=== PATIENT | male | born 1995 | race Caucasian/White ===

== ENCOUNTER 2020-05-06 23:12 | Emergency (ER) | payer SELFPAY ==
[2020-05-06] MEDS ORDERED: ASPIRIN 81 MG CHEW (CHILDREN'S ASA) PO ONE (23:30)
[2020-05-06 23:33] LABS: HEMATOCRIT 46 % (40-54); HEMOGLOBIN 15.8 G/DL (13.3-17.7); LYMPHOCYTES % (AUTO) 39 % (12-44); MEAN CORPUSCULAR HEMOGLOBIN 29 PG (25-34); MEAN CORPUSCULAR HGB CONC 35 G/DL (32-36); MEAN CORPUSCULAR VOLUME 85 FL (80-99); NEUTROPHILS % (AUTO) 49 % (42-75); PLATELET COUNT 207 10^3/uL (130-400)
[2020-05-06 23:34] LABS: BASOPHILS # (AUTO) 0.1 10^3/uL (0.0-0.1); BASOPHILS % (AUTO) 1 % (0-10); EOSINOPHILS # (AUTO) 0.2 10^3/uL (0.0-0.3); EOSINOPHILS % (AUTO) 4 % (0-10); LYMPHOCYTES # (AUTO) 2.4 X 10^3 (1.0-4.0); MONOCYTES # (AUTO) 0.4 X 10^3 (0.0-1.0); MONOCYTES % (AUTO) 7 % (0-12); NEUTROPHILS # (AUTO) 2.9 X 10^3 (1.8-7.8)
--- NOTE | 2020-05-06 23:34 | ED Cardiac General ---
History of Present Illness General Chief Complaint: Chest Pain Stated Complaint: CHEST/BACK PAIN Source: patient History of Present Illness Date Seen by Provider: May 06, 2020 Time Seen by Provider: 23:15 Initial Comments 24 yo male presenting with pain in middle of chest radiating to middle of back between his shoulder blades. He reports this has been present for about an hour and is a throbbing pain. It comes about every "1.5 seconds" for his throbbing pain. He has some nausea with the pain. He states he does not have any worsening of the pain with movement or deep breaths. He has not had pain like this before. 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 He reportedly has elevated triglycerides over 600 but does not take medicine for those. He takes Clonidine for blood pressure and has meds he takes for schizophrenia and to help him sleep. Allergies and Home Medications Allergies Coded Allergies: No Known Drug Allergies (Unverified , 05/06/20) Patient Home Medication List Home Medication List Reviewed: Yes Review of Systems Review of Systems Constitutional: No chills, No dizziness, No fever EENTM: No Symptoms Reported Respiratory: No Symptoms Reported Cardiovascular: See HPI Gastrointestinal: Nausea (with pain in chest) Genitourinary: No Symptoms Reported Musculoskeletal: back pain (middle upper back between shoulder blades) Skin: no symptoms reported Psychiatric/Neurological: Anxiety Past Nyzmelu-Dvvdst-Lkefqy Hx Past Med/Social Hx: Reviewed Nursing Past Med/Soc Hx Patient Social History Alcohol Use: Denies Use Recreational Drug Use: No Smoking Status: Current Everyday Smoker Type Used: Cigarettes Recent Foreign Travel: No Contact w/Someone Who Travel: No Past Medical History Surgeries: No Respiratory: No Cardiac: Yes Heart Attack (16 years old when he had a heart attack), High Cholesterol, Hypertension Neurological: No Genitourinary: No Gastrointestinal: No Musculoskeletal: No Endocrine: No Psychosocial: Yes Schizophrenia Physical Exam Vital Signs Vital Signs - First Documented 05/06/20 23:28 Temp 36.6 Pulse 84 Resp 16 B/P (MAP) 164/91 (115) Pulse Ox 98 O2 Delivery Room Air Capillary Refill : Height, Weight, BMI Height: '" Weight: lbs. oz. kg; BMI Method: General Appearance: No Apparent Distress, WD/WN HEENT: PERRL/EOMI Neck: Non Tender, Supple Respiratory: Chest Non Tender, Lungs Clear, Normal Breath Sounds, No Accessory Muscle Use, No Respiratory Distress Cardiovascular: Regular Rate, Rhythm, No JVD, No Murmur, Normal Peripheral Pulses Gastrointestinal: Normal Bowel Sounds, No Pulsatile Mass, Non Tender, Soft Extremity: Normal Capillary Refill Neurologic/Psychiatric: Alert, Oriented x3, No Motor/Sensory Deficits, bookkeeping manager II- XII Norm as Tested Skin: Normal Color, Warm/Dry Progress/Results/Core Measures Results/Orders Lab Results Laboratory Tests Test 05/06/20 23:25 Range/Units White Blood Count 6.0 4.3-11.0 10^3/uL Red Blood Count 5.41 4.35-5.85 10^6/uL Hemoglobin 15.8 13.3-17.7 G/DL Hematocrit 46 40-54 % Mean Corpuscular Volume 85 80-99 FL Mean Corpuscular Hemoglobin 29 25-34 PG Mean Corpuscular Hemoglobin Concent 35 32-36 G/DL Red Cell Distribution Width 13.0 10.0-14.5 % Platelet Count 207 130-400 10^3/uL Mean Platelet Volume 10.0 7.4-10.4 FL Immature Granulocyte % (Auto) 0 % Neutrophils (%) (Auto) 49 42-75 % Lymphocytes (%) (Auto) 39 12-44 % Monocytes (%) (Auto) 7 0-12 % Eosinophils (%) (Auto) 4 0-10 % Basophils (%) (Auto) 1 0-10 % Neutrophils # (Auto) 2.9 1.8-7.8 X 10^3 Lymphocytes # (Auto) 2.4 1.0-4.0 X 10^3 Monocytes # (Auto) 0.4 0.0-1.0 X 10^3 Eosinophils # (Auto) 0.2 0.0-0.3 10^3/uL Basophils # (Auto) 0.1 0.0-0.1 10^3/uL Immature Granulocyte # (Auto) 0.0 0.0-0.1 10^3/uL Prothrombin Time 13.2 12.2-14.7 SEC INR Comment 1.0 0.8-1.4 Activated Partial Thromboplast Time 28 24-35 SEC Sodium Level 140 135-145 MMOL/L Potassium Level 4.2 3.6-5.0 MMOL/L Chloride Level 105 98-107 MMOL/L Carbon Dioxide Level 25 21-32 MMOL/L Anion Gap 10 5-14 MMOL/L Blood Urea Nitrogen 19 H 7-18 MG/DL Creatinine 1.16 0.60-1.30 MG/DL Estimat Glomerular Filtration Rate > 60 BUN/Creatinine Ratio 16 Glucose Level 100 70-105 MG/DL Calcium Level 9.5 8.5-10.1 MG/DL Corrected Calcium 8.5-10.1 MG/DL Magnesium Level 2.1 1.6-2.4 MG/DL Total Bilirubin 0.3 0.1-1.0 MG/DL Aspartate Amino Transf (AST/SGOT) 20 5-34 U/L Alanine Aminotransferase (ALT/SGPT) 28 0-55 U/L Alkaline Phosphatase 49 40-136 U/L Troponin I < 0.30 <0.30 NG/ML Pro-B-Type Natriuretic Peptide 5.7 <75.0 PG/ML Total Protein 7.0 6.4-8.2 GM/DL Albumin 4.7 H 3.2-4.5 GM/DL Lipase 23 8-78 U/L My Orders Orders - ROSA FRASER MD Cbc With Automated Diff (05/06/20 23:27) Magnesium (05/06/20 23:27) Ekg Tracing (05/06/20 23:27) Comprehensive Metabolic Panel (05/06/20 23:27) Protime With Inr (05/06/20 23:27) Partial Thromboplastin Time (05/06/20 23:27) Monitor-Rhythm Ecg Trace Only (05/06/20 23:27) Aspirin Chewable Tablet (Baby Aspirin Ch (05/06/20 23:30) Ed Iv/Invasive Line Start (05/06/20 23:27) Lipase (05/06/20 23:27) Troponin I Fs (05/06/20 23:27) Probnp Fs (05/06/20 23:27) Ct Angio Chest W (05/06/20 23:27) Iohexol Injection (Omnipaque 350 Mg/Ml 1 (05/06/20 23:45) Received Contrast (Hold Metformin- Contr (05/06/20 23:45) Sodium Chloride Flush (Catheter Flush Sy (05/06/20 23:45) Ns (Ivpb) (Sodium Chloride 0.9% Ivpb Bag (05/06/20 23:45) Metoprolol Tartrate Injection (Lopressor (05/06/20 23:38) Medications Given in ED Current Medications Medications Dose Ordered Sig/Trevor Route Start Time Stop Time Status Last Admin Dose Admin Aspirin 324 mg ONCE ONCE PO 05/06/20 23:30 05/06/20 23:31 DC 05/06/20 23:32 324 MG Iohexol 125 ml ONCE ONCE IV 05/06/20 23:45 05/06/20 23:46 DC 05/06/20 23:47 125 ML Sodium Chloride 10 ml NEEDED PRN IV 05/06/20 23:45 05/06/20 23:47 10 ML Sodium Chloride 100 ml ONCE ONCE IV 05/06/20 23:45 05/06/20 23:46 DC 05/06/20 23:47 80 ML Vital Signs/I&O 05/06/20 05/07/20 23:28 00:51 Temp 36.6 Pulse 84 78 Resp 16 16 B/P (MAP) 164/91 (115) 125/64 Pulse Ox 98 99 O2 Delivery Room Air Room Air Progress Progress Note #1: Progress Note no acute ST elevation on his ECG or telemetry monitoring. Will obtain labs and with his complaint of throbbing pain going to his back will check CT angiogram of chest. Give 324 mg of Aspirin. Blood pressure slightly elevated on arrival. Will try a low dose of medicine for his blood pressure while waiting on labs and CT angiogram. 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 Awaiting CT angio of chest. Progress Note #3: Time: 00:38 Progress Note Labs all negative for acute AR or cardiac event and his CT angio chest does not show any acute finding. blood pressure down to 125/64 with heart rate 60s after treatment in ED. Pt reports feeling better and reviewed results with pt. Discharge to home and have him check with clinic about bp meds and they may adjust or add meds for him. Initial ECG Impression Date: May 06, 2020 Initial ECG Impression Time: 23:26 Initial ECG Rate: 81 Initial ECG Rhythm: Normal Sinus Initial ECG Comparisson: No Previous ECG Available Comment normal sinus rhythm with heart rate of 81 bpm. PA interval [address] elevation. QT interval 348 ms with a QTc interval 404 ms. There is no prior tracing available for comparison. Diagnostic Imaging Diagonstic Imaging: CT Plain Films/CT/US/NM/MRI: chest Comments CTA chest Impression: 1. Negative CTA Chest. Read by radiologist Dr. Ludin Madrigal MD at [phone] and faxed at [phone] Reviewed: Reviewed [facility] Study Departure Impression Primary Impression: Hypertension Qualified Codes: I10 - Essential (primary) hypertension Additional Impression: Chest pain in adult Disposition: HOME, SELF-CARE Condition: Improved Departure-Patient Inst. Decision time for Depature: 00:53 Referrals: NO,LOCAL PHYSICIAN (PCP) Primary Care Physician [facility] Patient Instructions: Heart Healthy Diet, High Blood Pressure (DC), Chest Pain (DC) Add. Discharge Instructions: Check back with clinic and see if they want to adjust your dose of medicine or do anything different for your blood pressure control Follow a low fat heart healthy diet All discharge instructions reviewed with patient and/or family. Voiced understanding. Work/School Note: Work Release Form Date Seen in the Emergency Department: May 07, 2020 Return to Work: May 08, 2020 Restrictions: No Restrictions ROSA FRASER MD May 06, 2020 23:34
[2020-05-06] MEDS ORDERED: meTOprolol 5 MG/5 ML (LOPRESSOR) VIAL IV STA (23:38)
[2020-05-06] MEDS ORDERED: NS 100 ML (IVPB) BAG IV ONE (23:45)
[2020-05-06] MEDS ORDERED: IOHEXOL 350 MG/ML 150 ML (OMNIPAQUE 350) VIAL IV ONE (23:45)
[2020-05-06] MEDS ORDERED: HOLD METFORMIN - RECEIVED CONTRAST 20 ML VIAL IV SCH (23:45)
[2020-05-06] MEDS ORDERED: CATHETER FLUSH 10 ML SYR IV PRN (23:45)
[2020-05-06 23:51] LABS: PROTHROMBIN TIME PATIENT 13.2 SEC (12.2-14.7)
[2020-05-06 23:52] LABS: ALANINE AMINOTRANSFERASE 28 U/L (0-55); ALBUMIN 4.7 GM/DL (3.2-4.5); ALKALINE PHOSPHATASE 49 U/L (40-136); BILIRUBIN,TOTAL 0.3 MG/DL (0.1-1.0); BUN/CREATININE RATIO 16; CALCIUM 9.5 MG/DL (8.5-10.1); CARBON DIOXIDE 25 MMOL/L (21-32); CHLORIDE 105 MMOL/L (98-107); CREATININE SERUM 1.16 MG/DL (0.60-1.30); GFR ESTIMATED > 60; GLUCOSE 100 MG/DL (70-105); MAGNESIUM 2.1 MG/DL (1.6-2.4); POTASSIUM 4.2 MMOL/L (3.6-5.0); SODIUM 140 MMOL/L (135-145)
[2020-05-06 23:53] LABS: LIPASE 23 U/L (8-78)
[2020-05-07 00:51] VITALS: BP 125/64
--- NOTE | 2020-05-07 19:11 | Diagnostic Imaging Report ---
PROCEDURE: CT angiography of the chest with contrast. TECHNIQUE: Multiple contiguous axial images were obtained through the chest after uneventful bolus administration of intravenous contrast. 3D reconstructed CTA MIP acquisitions were also performed. Auto Exposure Controls were utilized during the CT exam to meet ALARA standards for radiation dose reduction. INDICATION: Chest wall pain. COMPARISON: None. FINDINGS: Examination mildly limited by motion. No pulmonary artery filling defect. Normal caliber thoracic aorta. Normal heart size. No mediastinal, hilar or axillary lymphadenopathy. The lungs are clear. No pleural effusion or pneumothorax. Osseous structures are intact. Visualized upper abdominal contents are negative. IMPRESSION: 1. No pulmonary emboli. No thoracic aortic aneurysm or dissection. 2. No acute CT finding in the chest. Dictated by: Dictated on workstation # [id number]
== END 2020-05-07 00:59 | disposition home or self-care (01) ==
LOC: ER FS 23:17
DX: I10 Essential (primary) hypertension (principal); R07.9 Chest pain, unspecified; I25.2 Old myocardial infarction; F41.9 Anxiety disorder, unspecified; F17.210 Nicotine dependence, cigarettes, uncomplicated
CPT/HCPCS: 36415; 71275; 80053; 83690; 83735; 83880; 84484; 85025; 85610; 85730; 93041